=== PATIENT | female | born 1960 | race Two or more races ===

== ENCOUNTER 2024-06-17 12:19 | Emergency (ER) | payer MEDICARE, MEDICAID ==
[~2024-06-17] VITALS: Ht 152.4 cm; Wt 74.0 kg
[2024-06-17 12:26] VITALS: O2SAT 99
[2024-06-17] MEDS: ACETAMINOPHEN 500MG TABLET PO ONE (14:16)
[2024-06-17] MEDS ORDERED: ACET-2708 MT (16:19)
[2024-06-17 16:23] VITALS: BP 155/70; PULSE 80; RESP 16; TEMP 36.83628; O2SAT 99
== END 2024-06-17 16:24 | disposition home or self-care (01) ==
LOC: ER 13:52
DX: S52.612A Displaced fracture of left ulna styloid process, initial encounter for closed fracture (principal); S52.92XA Unspecified fracture of left forearm, initial encounter for closed fracture; S42.002A Fracture of unspecified part of left clavicle, initial encounter for closed fracture; E11.9 Type 2 diabetes mellitus without complications; E78.00 Pure hypercholesterolemia, unspecified; I10 Essential (primary) hypertension; W07.XXXA Fall from chair, initial encounter; Y93.89 Activity, other specified; Y92.89 Other specified places as the place of occurrence of the external cause; Y99.8 Other external cause status
CPT/HCPCS: 29105; 71045; 73000; 73030; 73110; 99284; A4565